=== PATIENT | female | born 1980 | race Two or more races ===

== ENCOUNTER → 2016-09-10 | Outpatient (CLI) | payer BC | LOC: RAD 16:24 | PROVIDERS: ATTEND Physician Assistant | DX: G43.909 Migraine, unspecified, not intractable, without status migrainosus (principal) | CPT/HCPCS: 70551 ==

== ENCOUNTER 2016-11-01 05:41 | Day surgery (SDC) | payer BC ==
[2016-10-29 12:56] LABS: HEMATOCRIT 33.6 % (36.0-47.0); HGB HCT DIFFERENCE -0.6; MEAN CORPUSCULAR HEMOGLOBIN 28.9 pg (27.0-33.4); MEAN CORPUSCULAR HGB CONC 32.6 g/dL (32.0-36.0); MEAN CORPUSCULAR VOLUME 89 fl (80-97); RED CELL DISTRIBUTION WIDTH 13.2 % (11.5-14.0); WHITE BLOOD COUNT 6.6 10^3/uL (4.0-10.5)
[2016-10-29 13:08] LABS: AMORPHOUS SEDIMENT,URINE TRACE /HPF; APPEARANCE,URINE SLIGHTLY-CLOUDY; BILIRUBIN,URINE NEGATIVE (NEGATIVE); GLUCOSE, URINE NEGATIVE (NEGATIVE); KETONES,URINE NEGATIVE (NEGATIVE); LEUKOCYTE ESTERASE,URINE NEGATIVE (NEGATIVE); NITRITE,URINE NEGATIVE (NEGATIVE); PROTEIN,URINE NEGATIVE (NEGATIVE); URINE SPECIFIC GRAVITY 1.013; UROBILINOGEN,URINE NEGATIVE mg/dL (<2.0)
[2016-10-29 13:19] LABS: ALANINE AMINOTRANSFERASE 23 U/L (9-52); ALBUMIN 4.3 g/dL (3.5-5.0); ALKALINE PHOSPHATASE 73 U/L (38-126); ANION GAP 12 (5-19); ASPARTATE AMINO TRANSFERASE 17 U/L (14-36); BILIRUBIN,DIRECT 0.2 mg/dL (0.0-0.4); BILIRUBIN,TOTAL 0.3 mg/dL (0.2-1.3); BLOOD UREA NITROGEN 14 mg/dL (7-20); CALCIUM 9.4 mg/dL (8.4-10.2); CARBON DIOXIDE 26 mmol/L (22-30); CHLORIDE 105 mmol/L (98-107); CREATININE RESULT 0.68 mg/dL (0.52-1.25); GLUCOSE 92 mg/dL (75-110); POTASSIUM 4.5 mmol/L (3.6-5.0); SODIUM 143.3 mmol/L (137-145); TOTAL PROTEIN 7.5 g/dL (6.3-8.2)
[~2016-11-01 05:41] MED LIST: CEFAZOLIN 2 GM/D5W RTU 2 GM/50 ML RTUPB IV PRN; LACTATED RINGERS 1000 ML IV PRN; LIDOCAINE 0.5% INJ-PF (5 MG/ML) 50 ML SDV SUBCUT PRN
[2016-11-01] MEDS ORDERED: FENTANYL CITRATE INJ/PF 250 MCG/5 ML AMPULE ONE (07:37)
[2016-11-01] MEDS ORDERED: PROPOFOL INJ 200 MG/20 ML VIAL IV ONE (07:38)
[2016-11-01] MEDS ORDERED: MIDAZOLAM 2 MG/2 ML INJ ONE (07:38)
[2016-11-01] MEDS ORDERED: ACETAMINOPHEN 100 ML IV ONE (07:38)
[2016-11-01] MEDS ORDERED: DEXMEDETOMIDINE INJ 80 MCG/20 ML VIAL IV ONE (07:38)
[2016-11-01] MEDS ORDERED: MORPHINE SULFATE 10 MG/ML INJ ONE (07:39)
[2016-11-01] MEDS ORDERED: OXYCODONE-ACETAMINOPHEN 5-325 MG TABLET PO PRN ×2 (09:02)
[2016-11-01] MEDS ORDERED: DIPHENHYDRAMINE HCL 50 MG/ML VIAL IV PRN (09:02)
[2016-11-01] MEDS ORDERED: MORPHINE SULFATE 10 MG/ML INJ IV PRN (09:02)
[2016-11-01] MEDS ORDERED: PROMETHAZINE HCL INJ 25 MG/1 ML VIAL IV PRN ×2 (09:02)
[2016-11-01] MEDS ORDERED: MEPERIDINE HCL/PF INJ 25 MG/1 ML DISP.SYRIN IV PRN (09:02)
[2016-11-01] MEDS ORDERED: FENTANYL CITRATE INJ/PF 100 MCG/2 ML AMPUL IV PRN ×3 (09:02)
--- NOTE | 2016-11-01 10:54 | Operative Report ---
Operative Report DATE OF SURGERY: 11/01/16 PREOPERATIVE DIAGNOSIS: Heavy menses anemia of blood loss pelvic pain POSTOPERATIVE DIAGNOSIS: Same OPERATION: Robotic hysterectomy bilateral salpingectomy SURGEON: MARIKA PEREIRA CH[employer] FORMING MACHINE OPERATOR: OR staff ANESTHESIA: GA TISSUE REMOVED OR ALTERED: Uterus cervix fallopian tubes COMPLICATIONS: None ESTIMATED BLOOD LOSS: 125 mL INTRAOPERATIVE FINDINGS: Normal ovaries PROCEDURE: The patient was taken to the OR and placed in supine position. Gen. anesthesia was induced. She's placed in the dorsal lithotomy position using Kaden stirrups. She was prepared for the robotic procedure. Her abdomen perineum and vagina were prepared and draped in sterile fashion. [employer] care uterine manipulator was placed onto the cervix. Díaz catheter was used to drain the bladder. An incision was made 5 cm above the umbilicus and the fascia was elevated with Serina clamps. The fascia was incised and a blunt port was placed without difficulty. Laparoscopy confirmed appropriate placement. The lateral ports for the robot arms were placed under laparoscopic visualization. A port was placed in the right lower quadrant for the insufflation device. This was done under laparoscopic visualization as well. She did have some adhesions in the right lower quadrant from her previous incision but this did not interfere with her surgery. The robot was brought to the bedside and docked. There was a bipolar cautery on the left hand and on the right hand monopolar venessa. Next each fallopian tube was removed and passed off the field. This was done by using combination of bipolar and monopolar cautery. The ovaries were normal and left in place. Next the uterus was elevated with the manipulator and the round ligaments were cauterized with bipolar and cut with monopolar cautery. The utero-ovarian pedicles were cauterized bipolar and cut with monopolar cautery. The broad ligament was incised by cauterized with bipolar and cutting with monopolar cautery. The anterior leaf of the broad ligament was incised creating a bladder flap. All this was done staying next to the body of the uterus. Next the uterine arteries were cauterized with bipolar and cut with monopolar cautery. The cardinal ligaments bilaterally were cauterized with bipolar and cut with monopolar cautery. All this was done so again staying next to the cervix. A circumferential incision was made on the v care cup excising the cervix free from the vaginal cuff. The uterus was removed through the vagina using morcellation with a scalpel as it was enlarged. The pedicles were inspected and good hemostasis was noted. The vaginal cuff was then closed with a 0 locked suture in a running fashion. The suture was started at the right side of the vaginal cuff incorporating anterior vaginal mucosa lateral vaginal sidewall and posterior vaginal mucosa. The cuff was closed in a running fashion incorporating anterior and posterior vaginal mucosa. The left angle was also closed incorporating anterior vaginal mucosa lateral vaginal sidewall and posterior vaginal mucosa. The suture was then run medially for several bites to finish the cuff closure and the suture was cut needle passed off the field. The ureters were inspected before the case started and weren't could be seen and appeared normal and nondilated at the end of the case. The pelvis was suctioned free of blood and fluid. Once again all pedicles were inspected and appeared hemostatic. The robot was undocked. Laparoscopic ports were removed under visualization. The umbilical scope and port were removed and Unasyn. The fascia at this incision was closed with a 2-0 Vicryl suture. The skin at all 4 port sites was closed with 4-0 undyed Vicryl suture. The patient was placed back in supine position and extubated and taken to recovery room in stable condition.
[2016-11-01] MEDS: FENTANYL CITRATE INJ/PF 100 MCG/2 ML AMPUL ONE ×2 (11:05→11:20)
[2016-11-01] MEDS ORDERED: RINGERS SOLUTION,LACTATED 1,000 ML IV PRN (11:06)
[2016-11-01] MEDS ORDERED: HYDROMORPHONE HCL 2 MG TABLET PO PRN ×2 (11:09→11:10)
[2016-11-01] MEDS ORDERED: HYDROMORPHONE HCL INJ/PF 2 MG/ML AMPULE IV PRN ×2 (11:09→11:10)
[2016-11-01] MEDS ORDERED: (PENDING PHARMACY ID) (Rizatriptan Benzoate [Rizatriptan] 10 MG) PO PRN (13:13)
[2016-11-01] MEDS ORDERED: GLYCOPYRROLATE INJ 0.4 MG/2 ML VIAL ONE (13:43)
[2016-11-01] MEDS ORDERED: ROCURONIUM BROMIDE INJ 50 MG/5 ML VIAL IV ONE (13:43)
[2016-11-01] MEDS ORDERED: NEOSTIGMINE METHYLSULFATE 10 MG/10 ML VIAL ONE (13:43)
[2016-11-01] MEDS ORDERED: LIDOCAINE 2% INJ-PF (20 MG/ML) 10 ML AMPUL ONE (13:43)
[2016-11-01] MEDS ORDERED: SUCCINYLCHOLINE CHLORIDE INJ 200 MG/10 ML VIAL ONE (13:43)
[2016-11-01] MEDS ORDERED: METOCLOPRAMIDE HCL INJ/PF 10 MG/2 ML SDV ONE (13:43)
[2016-11-01] MEDS ORDERED: ONDANSETRON HCL INJ/PF 4 MG/2 ML SDV ONE (13:43)
[2016-11-01] MEDS ORDERED: DEXAMETHASONE SOD PHOSPHATE INJ 4 MG/1 ML VIAL ONE (13:43)
[2016-11-01] MEDS ORDERED: CITALOPRAM HYDROBROMIDE 20 MG TABLET PO ONE (14:00)
[2016-11-01 16:24] LABS: ABSOLUTE LYMPHOCYTES (AUTO) 0.6 10^3/uL (0.5-4.7); ABSOLUTE MONOCYTES (AUTO) 0.1 10^3/uL (0.1-1.4); ABSOLUTE NEUT (AUTO) 8.9 10^3/uL (1.7-8.2); BASOPHILS % (AUTO) 0.2 % (0-2); HEMATOCRIT 31.4 % (36.0-47.0); HEMOGLOBIN 10.4 g/dL (12.0-15.5); HGB HCT DIFFERENCE -0.2; LYMPHOCYTES % (AUTO) 6.4 % (13-45); MEAN CORPUSCULAR HEMOGLOBIN 28.8 pg (27.0-33.4); MEAN CORPUSCULAR VOLUME 87 fl (80-97); MONOCYTES % (AUTO) 1.4 % (3-13); WHITE BLOOD COUNT 9.6 10^3/uL (4.0-10.5)
[2016-11-01 16:46] LABS: ANION GAP 12 (5-19); BLOOD UREA NITROGEN 11 mg/dL (7-20); CARBON DIOXIDE 21 mmol/L (22-30); CHLORIDE 103 mmol/L (98-107); CREATININE RESULT 0.64 mg/dL (0.52-1.25); GLUCOSE 166 mg/dL (75-110); POTASSIUM 4.7 mmol/L (3.6-5.0); SODIUM 136.4 mmol/L (137-145)
--- NOTE | 2016-11-01 17:06 | PDOC PROGRESS REPORT ---
Subjective Progress Note for:: 11/01/16 Subjective:: She is doing well tonight. Physical Exam - Physical Exam Vital Signs: Temp Pulse Resp BP Pulse Ox 98 F 71 15 109/60 98 11/01/16 16:45 11/01/16 16:45 11/01/16 16:45 11/01/16 16:45 11/01/16 16:45 Intake & Output 10/31/16 11/01/16 11/02/16 06:59 06:59 06:59 Intake Total 0 3600 Output Total 1250 Balance 0 2350 Weight 82.55 kg General appearance: PRESENT: no acute distress - dressing dry Result Laboratory Results: 11/01/16 16:10 11/01/16 16:10 11/01/16 11/01/16 11/01/16 06:22 16:10 16:10 WBC 9.6 RBC 3.60 L Hgb 10.4 L Hct 31.4 L MCV 87 MCH 28.8 MCHC 33.0 RDW 13.0 Plt Count 316 Seg Neutrophils % 92.0 H Lymphocytes % 6.4 L Monocytes % 1.4 L Eosinophils % 0.0 Basophils % 0.2 Absolute Neutrophils 8.9 H Absolute Lymphocytes 0.6 Absolute Monocytes 0.1 Absolute Eosinophils 0.0 Absolute Basophils 0.0 Sodium 136.4 L Potassium 4.7 Chloride 103 Carbon Dioxide 21 L Anion Gap 12 BUN 11 Creatinine 0.64 Est GFR ( Amer) > 60 Est GFR (Non-Af Amer) > 60 Glucose 166 H Calcium 9.0 Blood Type O POSITIVE Antibody Screen NEGATIVE Assessment & Plan - Time Time Spent with patient: Less than 15 minutes Anticipated discharge: Home Within: within 24 hours
[2016-11-01] MEDS ORDERED: IBUPROFEN 800 MG TABLET PO SCH (18:00)
[2016-11-01] MEDS: OXYCODONE-ACETAMINOPHEN 5-325 MG TABLET PO PRN (20:29)
[2016-11-01] MEDS ORDERED: BUPROPION HCL 75 MG TABLET PO SCH (22:00)
[2016-11-02] MEDS: OXYCODONE-ACETAMINOPHEN 5-325 MG TABLET PO PRN ×2 (02:05→08:09)
[2016-11-02 06:18] LABS: ABSOLUTE LYMPHOCYTES (AUTO) 1.7 10^3/uL (0.5-4.7); BASOPHILS % (AUTO) 0.2 % (0-2); EOSINOPHILS % (AUTO) 0.4 % (0-6); HEMATOCRIT 28.2 % (36.0-47.0); HEMOGLOBIN 9.6 g/dL (12.0-15.5); HGB HCT DIFFERENCE 0.6; LYMPHOCYTES % (AUTO) 16.1 % (13-45); MEAN CORPUSCULAR HEMOGLOBIN 29.4 pg (27.0-33.4); MEAN CORPUSCULAR VOLUME 87 fl (80-97); MONOCYTES % (AUTO) 9.3 % (3-13); RED BLOOD COUNT 3.25 10^6/uL (3.72-5.28); RED CELL DISTRIBUTION WIDTH 13.1 % (11.5-14.0); WHITE BLOOD COUNT 10.8 10^3/uL (4.0-10.5)
[2016-11-02 06:30] LABS: ANION GAP 9 (5-19); BLOOD UREA NITROGEN 8 mg/dL (7-20); CALCIUM 8.8 mg/dL (8.4-10.2); CARBON DIOXIDE 28 mmol/L (22-30); CHLORIDE 104 mmol/L (98-107); CREATININE RESULT 0.61 mg/dL (0.52-1.25); GLUCOSE 109 mg/dL (75-110); POTASSIUM 4.2 mmol/L (3.6-5.0); SODIUM 140.7 mmol/L (137-145)
--- NOTE | 2016-11-02 08:40 | PDOC DISCHARGE SUMMARY ---
General - Admit/Disc Date/PCP Admission Date/Primary Care Provider: PERLA MIRANDA PA-C Discharge Date: 11/02/16 - Additional Information Home Medications: Bupropion HCl [Wellbutrin Xl 150 mg 24hr Tablet] 1 tab PO DAILY 10/22/16 Citalopram Hydrobromide [Celexa] 1 tab PO DAILY 10/22/16 Rizatriptan Benzoate [Rizatriptan] 10 mg PO PRN PRN 10/22/16 Ibuprofen [Motrin 800 mg Tablet] 800 mg PO BID #0 tablet 11/02/16 Oxycodone HCl/Acetaminophen [Percocet 5-325 mg Tablet] 2 tab PO Q6HP PRN #0 tablet 11/02/16 History of Present Illness Patient complains of: heavy painful menses History of Present Illness: SANJANA BALLESTEROS is a 36 year old female She presents with a long history of painful heavy menses and request a hysterectomy for treatment. Hospital Course Hospital Course: She was admitted and underwent a robotic hysterectomy with removal of the fallopian tubes. The ovaries were left in place and appeared normal. Please see the operative report. The night of surgery she was doing well and pain was well controlled. The martinez was removed and she was able to void. The next day she continued to do well and was sent home. Physical Exam - Physical Exam Vital Signs: Temp Pulse Resp BP Pulse Ox 98.1 F 78 18 118/54 L 95 11/02/16 04:06 11/02/16 04:06 11/02/16 04:06 11/02/16 04:06 11/02/16 04:06 Intake & Output 11/01/16 11/02/16 11/03/16 06:59 06:59 06:59 Intake Total 0 4630 Output Total 3100 Balance 0 1530 Weight 82.55 kg General appearance: PRESENT: no acute distress Head exam: PRESENT: atraumatic - The incisions were clean and intact. Her extremities were nontender. Result Laboratory Results: 11/02/16 05:52 11/02/16 05:52 11/01/16 11/01/16 11/02/16 16:10 16:10 05:52 WBC 9.6 10.8 H RBC 3.60 L 3.25 L Hgb 10.4 L 9.6 L Hct 31.4 L 28.2 L MCV 87 87 MCH 28.8 29.4 MCHC 33.0 34.0 RDW 13.0 13.1 Plt Count 316 314 Seg Neutrophils % 92.0 H 74.0 Lymphocytes % 6.4 L 16.1 Monocytes % 1.4 L 9.3 Eosinophils % 0.0 0.4 Basophils % 0.2 0.2 Absolute Neutrophils 8.9 H 8.0 Absolute Lymphocytes 0.6 1.7 Absolute Monocytes 0.1 1.0 Absolute Eosinophils 0.0 0.0 Absolute Basophils 0.0 0.0 Sodium 136.4 L Potassium 4.7 Chloride 103 Carbon Dioxide 21 L Anion Gap 12 BUN 11 Creatinine 0.64 Est GFR ( Amer) > 60 Est GFR (Non-Af Amer) > 60 Glucose 166 H Calcium 9.0 11/02/16 05:52 WBC RBC Hgb Hct MCV MCH MCHC RDW Plt Count Seg Neutrophils % Lymphocytes % Monocytes % Eosinophils % Basophils % Absolute Neutrophils Absolute Lymphocytes Absolute Monocytes Absolute Eosinophils Absolute Basophils Sodium 140.7 Potassium 4.2 Chloride 104 Carbon Dioxide 28 Anion Gap 9 BUN 8 Creatinine 0.61 Est GFR ( Amer) > 60 Est GFR (Non-Af Amer) > 60 Glucose 109 Calcium 8.8 Impressions: She is doing well and asks to go home to rest. Plan Discharge Plan: Home to rest with regular diet. Pelvic rest and no heavy lifting. No driving until off pain meds. Percocet one every 6 hours prn pain written (30). Time Spent: Less than 30 Minutes
[2016-11-02 09:06] VITALS: BP 137/69
[2016-11-02] MEDS ORDERED: (PENDING PHARMACY ID) (Bupropion Hcl [Wellbutrin Xl 150 Mg 24hr Tablet] 1 TAB) PO SCH (10:00)
[2016-11-02] MEDS ORDERED: CITALOPRAM HYDROBROMIDE 20 MG TABLET PO SCH (10:00)
[2016-11-02] MEDS ORDERED: (PENDING PHARMACY ID) (Citalopram Hydrobromide [Celexa] 1 TAB) PO SCH (10:00)
== END 2016-11-02 09:00 | disposition home or self-care (01) ==
LOC: OROUT 05:41 → 2S 12:19 → OROUT 11-02 09:00
PROVIDERS: ATTEND Obstetrics & Gynecology
PROC: 0UTC4ZZ Resection of Cervix, Percutaneous Endoscopic Approach (ICD-10-PCS; 2016-11-01)
PROC: 0UT74ZZ Resection of Bilateral Fallopian Tubes, Percutaneous Endoscopic Approach (ICD-10-PCS; 2016-11-01)
PROC: 8E0W4CZ Robotic Assisted Procedure of Trunk Region, Percutaneous Endoscopic Approach (ICD-10-PCS; 2016-11-01)
PROC: 0UT94ZZ Resection of Uterus, Percutaneous Endoscopic Approach (ICD-10-PCS; principal; 2016-11-01 07:30)
DX: N92.4 Excessive bleeding in the premenopausal period (principal); D25.0 Submucous leiomyoma of uterus; D50.0 Iron deficiency anemia secondary to blood loss (chronic); Z91.040 Latex allergy status; Z79.899 Other long term (current) drug therapy
CPT/HCPCS: 58573; S2900; 36415; 80048; 80053; 81001; 81025; 840; 85025; 85027; 86850; 86900; 86901; 88307; J0131; J0330; J0690; J1100; J2250; J2270; J2405; J2704; J2765; J3010; J3490